=== PATIENT | male | born 1950 | race African-American/Black ===

== ENCOUNTER 2016-08-06 20:49 | Emergency (ER) | payer OTHER, MEDICARE ==
[~2016-08-06 20:49] MED LIST: CYCL10TA2 PO; METH-37 PO; TRAM-29 PO
[2016-08-06 20:52] VITALS: BP 167/82
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
[2016-08-06] MEDS ORDERED: NAPR500T8 PO (23:04)
[2016-08-06] MEDS ORDERED: CYCL10TA2 PO (23:04)
--- NOTE | 2016-08-07 07:51 | RAD ---
Indication pain. AP and lateral views of the thoracic spine were obtained. There are some degenerative changes. This is manifested primarily as osteophyte formation. Vertebral height is relatively well maintained. An acute bony finding is not seen.
--- NOTE | 2016-08-07 07:53 | RAD ---
Indication back pain. AP and lateral views of the lumbar spine were obtained as well as a coned view targeted to the lumbosacral junction. Vertebral height and alignment are well maintained. There are degenerative endplate changes at L3-4. Small osteophytes are seen at the same level. An acute bony finding is not seen. IMPRESSION: Modest spondylitic changes predominantly centered at L3-4. No acute finding seen
== END 2016-08-06 23:05 | disposition home or self-care (01) ==
LOC: MERGE 20:49 → ER 20:49
DX: M54.5 Low back pain (principal); E11.9 Type 2 diabetes mellitus without complications; I10 Essential (primary) hypertension; V49.59XA Passenger injured in collision with other motor vehicles in traffic accident, initial encounter; Y93.89 Activity, other specified; Y99.8 Other external cause status; Y92.488 Other paved roadways as the place of occurrence of the external cause
CPT/HCPCS: 72072; 72100; 99284

== ENCOUNTER 2016-08-21 21:16 | Emergency (ER) | payer MEDICARE, OTHER ==
[~2016-08-21 21:16] MED LIST changes: +NAPR500T8 PO
[2016-08-21 21:28] VITALS: BP 125/74
[2016-08-21] MEDS ORDERED: NAPR500T PO (21:51)
[2016-08-21] MEDS ORDERED: METH-37 PO (21:51)
[2016-08-21] MEDS ORDERED: TRAM50TA PO (21:51)
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
[2016-08-21] MEDS ORDERED: KETOROLAC TROMETHAMINE 60 MG/2 ML INJ. IM ONE (22:00)
== END 2016-08-21 22:11 | disposition home or self-care (01) ==
LOC: ER 21:16
DX: M54.6 Pain in thoracic spine (principal); E11.9 Type 2 diabetes mellitus without complications; I10 Essential (primary) hypertension; V49.50XA Passenger injured in collision with unspecified motor vehicles in traffic accident, initial encounter; Y92.413 State road as the place of occurrence of the external cause; Y93.89 Activity, other specified; Y99.8 Other external cause status
CPT/HCPCS: 96372; 99283; J1885

== ENCOUNTER → 2017-11-10 | Outpatient (CLI) | payer OTHER ==
[2017-11-11] MEDS: MAG HYDROX/ALUMINUM HYD/SIMETH 30 ML ORAL.SUSP PO (01:30)
== END | disposition home or self-care (01) ==
LOC: SLPLAB 18:22
DX: G47.33 Obstructive sleep apnea (adult) (pediatric) (principal); I10 Essential (primary) hypertension; E11.9 Type 2 diabetes mellitus without complications
CPT/HCPCS: 95811